=== PATIENT | female | born 1950 | race Caucasian/White ===

== ENCOUNTER 2024-03-21 02:37 | Outpatient (CLI) | payer MEDICARE, SELFPAY ==
[2024-03-21 10:16] LABS: Abs Immature Grans 0.04 10^3/uL (0.0-0.06); Absolute Basophil Count 0.07 10^3/uL (0.0-0.2); Absolute Eosinophil Count 0.22 10^3/uL (0.0-0.7); Absolute Lymphocyte Count 1.64 10^3/uL (1.2-3.4); Absolute Monocyte Count 0.45 10^3/uL (0.1-0.8); Absolute Neutrophil Count 4.21 10^3/uL (1.2-6.7); Basophils % 1.1 %; Eosinophils % 3.3 %; HCT 42.3 % (36.0-46.0); HGB 13.6 g/dL (11.2-15.7); Immature Grans % 0.6 %; Lymphocytes % 24.7 %; MCH 28.8 pg (27.0-33.0); MCHC 32.2 % (32.0-36.0); MCV 89 fL (80-95); MPV 10.6 fL (8.0-11.0); Monocytes % 6.8 %; Neutrophils % 63.5 %; Platelet Count 220 10^3/uL (130-400); RBC 4.73 10^6/uL (3.93-5.22); WBC 6.63 10^3/uL (4.4-10.8)
[2024-03-21 10:45] LABS: Hemoglobin A1C 6.1 % (<5.7)
[2024-03-21 11:35] LABS: ALT 34 U/L (14-59); AST 25 U/L (15-37); Albumin 3.8 g/dL (3.4-5.0); Alkaline Phosphatase 57 U/L (46-116); Anion Gap 5.9 mmol/L (3-11); BUN 20 mg/dL (7-18); Bilirubin, Total 0.26 mg/dL (0.2-1.0); CO2 32.1 mmol/L (21.0-32.0); Calcium 9.6 mg/dL (8.5-10.1); Calculated LDL 90 mg/dL (<100); Chloride 104 mmol/L (98-107); Cholesterol 178 mg/dL (<200); Estimated GFR 59.86 (mL/min/1.73m2); Glucose 86 mg/dL (74-106); HDL Cholesterol 60 mg/dL (40-60); Sodium 142 mmol/L (136-145); TSH (W/Ref FT4) 1.67 uIU/mL (0.36-3.74); Total Protein 7.1 g/dL (6.4-8.2); Triglyceride 144 mg/dL (<150)
[2024-03-21 20:11] LABS: HIV-1/2 Ag & Ab Screen Negative (Negative)
[2024-03-21 20:15] LABS: Hepatitis C Ab w Rflx HCV PCR Negative (Negative)
[2024-03-21 20:17] LABS: HBs Antibody, Quant 12.6 mIU/mL (See Note); Hep B Surface Ab Positive (See Note); Hepatitis B Core Antibody Negative (Negative); Hepatitis B Surface Antigen Negative (Negative)
== END 2024-03-21 02:38 | disposition home or self-care (01) ==
PROVIDERS: PCP Nurse Practitioner Family; Visit Provider Nurse Practitioner Family
DX: Z11.59 Encounter for screening for other viral diseases (principal); I10 Essential (primary) hypertension; E78.5 Hyperlipidemia, unspecified; Z11.4 Encounter for screening for human immunodeficiency virus [HIV]
CPT/HCPCS: 36415; 80053; 80061; 86704; 86706; 86803; 87340; 87389; 83036; 84443; 85025

== ENCOUNTER 2024-03-29 02:30 | Outpatient (CLI) | payer MEDICARE, SELFPAY ==
--- NOTE | 2024-03-29 07:15 | DI.MAMMO_ITS ---
Exam(s) MG MAMMO SCREENING 60 MIN DUR EXAM: MG MAMMO SCREENING 60 MIN DUR CLINICAL HISTORY: breast cancer screening,H/O LT BREAST CA,Z85.3,Z12.39. TECHNIQUE: Bilateral full field digital CC and MLO mammographic images were obtained with 3D tomosyn thesis and utilizing computer aided detection (CAD). COMPARISON: None. Prior outside mammograms have not yet been received (10 days). This 73-year-old patient underwent left breast lumpectomy for malignancy in December 1021. FINDINGS: The fibroglandular tissue pattern is moderately dense. No significant focal findings in the right breast. In the left breast there is architectural distortion inferomedially which is the site of prior lumpec adrián (December 2021). There are no malignant-appearing microcalcification groups at this site. IMPRESSION: 1. No radiographic evidence of malignancy in the right breast. 2. Architectural distortion scarring in the medial left breast at the prior lumpectomy site (December 2021, outside institution). 3. An addendum will follow if and when we receive her prior outside mammograms for comparison purpose s. BI-RADS Category 0 - Incomplete: Need additional imaging evaluation, specifically comparison to prio r outside mammograms Breast Density - Category C - Heterogeneously dense Breast density Category C or D implies that the patient has dense breast tissue. Dense breast tissue can make it harder to find cancer on a mammogram. Dense breast tissue is also associated with an incr eased risk of breast cancer. This information about the result of the mammogram report was provided to the patient to raise their awareness. Use this report when you speak with the patient about their risks for breast cancer, which includes their family history. At that time, you may recommend additional screening tests (Ultrasoun d or MRI) as these tests may add significant information. A negative radiographic report should not delay biopsy if a dominant or clinically suspicious mass is present. Up to ten percent of cancers are not identified on mammography. A negative report may reinforce clinical impression. Adenosis and dense breasts may obscure an underlying neoplasm. False positive reports average 6 to 10%. Patient will receive a letter notifying them of these results.
== END 2024-03-29 02:50 ==
LOC: DI 02:30
PROVIDERS: PCP Nurse Practitioner Family; Visit Provider Nurse Practitioner Family
DX: Z85.3 Personal history of malignant neoplasm of breast (principal); Z12.31 Encounter for screening mammogram for malignant neoplasm of breast; R92.333 Mammographic heterogeneous density, bilateral breasts
CPT/HCPCS: 77063; 77067

== ENCOUNTER 2024-05-22 01:47 | Outpatient (CLI) | payer MEDICARE, SELFPAY ==
--- NOTE | 2024-05-22 | DI.US_ITS ---
Exam(s) MG MAMMO SCREEN CALL BACK UNI US BREAST LT COMPLETE EXAM: MG MAMMO SCREEN CALL BACK UNI-LEFT COMPLETE LEFT BREAST ULTRASOUND CLINICAL HISTORY: R92.8 ABN mammo, Architectural distortion scarring in the medial LT breast. TECHNIQUE: Unilateral LEFT BREAST SPOT CC AND MLO mammographic images obtained with 3D tomosynthesis and utilizing computer aided detection (CAD). . Complete LEFT breast Ultrasound was also performed, including all 4 quadrants, the retroareolar regio n, and the ipsilateral axilla. THIS PATIENT UNDERWENT LEFT BREAST LUMPECTOMY FOLLOWING [facility] COMPARISON: Prior mammograms were reviewed. This additional imaging was performed due to findings described on the recent screening mammogram of 03/29/2024. We have now finally received the actual mammogram and ultrasound images from out the outside [facility] where the malignancy was discovered in November 2021. FINDINGS: DIAGNOSTIC MAMMOGRAM: Additional CC and MLO spot 3D mammographic views performed todayreveal architectural distortion at th e lumpectomy site towards the inferomedial aspect of the left breast. There is also a well-defined i nternally hypodense finding at this level which measures 1.8 x 1.1 cm. There are no malignant-appear ing microcalcifications in this region nor elsewhere in the left breast COMPLETE LEFT BREAST ULTRASOUND: Ultrasound performed today reveals a finding at the 7 o'clock lumpectomy site position which appears partially solid partially cystic, measuring 1.8 x 1.1 cm and most probably corresponding to the findi ng on the mammogram. Adjacent to it is another 2nd smaller finding measuring 5 x 4 mm which has appe arance of a hemorrhagic microcyst.. There are no other focal findings in all 4 quadrants of the left breast. Scanning of the ipsilateral axilla reveals no significant adenopathy. IMPRESSION: 1. Finding at the 7 o'clock position lumpectomy site of the left breast as described above, measurin g 18 x 11 mm which may be postoperative fat necrosis or small collection with good correlation betwee n the ultrasound and mammographic findings. 2. A 2nd smaller finding at this level has appearance of a small 5 x 4 mm hemorrhagic microcyst. Appropriate follow-up is repeat left breast mammogram and ultrasound in 6 months. BI-RADS Category 3 - 6 month - Probably Benign Finding: Recommend follow-up left breast ultrasound an d mammography in 6 months Breast Density - Category C - Heterogeneously dense Breast density Category C or D implies that the patient has dense breast tissue. Dense breast tissue can make it harder to find cancer on a mammogram. Dense breast tissue is also associated with an incr eased risk of breast cancer. This information about the result of the mammogram report was provided to the patient to raise their awareness. Use this report when you speak with the patient about their risks for breast cancer, which includes their family history. At that time, you may recommend additional screening tests (Ultrasoun d or MRI) as these tests may add significant information. A negative radiographic report should not delay biopsy if a dominant or clinically suspicious mass is present. Up to ten percent of cancers are not identified on mammography. A negative report may reinforce clinical impression. Adenosis and dense breasts may obscure an underlying neoplasm. False positive reports average 6 to 10%. Patient will receive a letter notifying them of these results.
== END 2024-05-22 02:07 ==
LOC: DI 01:47
PROVIDERS: PCP Nurse Practitioner Family; Visit Provider Nurse Practitioner Family
DX: Z12.31 Encounter for screening mammogram for malignant neoplasm of breast (principal); R92.8 Other abnormal and inconclusive findings on diagnostic imaging of breast
CPT/HCPCS: 76642; 77063; 77067

== ENCOUNTER 2024-11-23 03:54 | Outpatient (CLI) | payer MEDICARE, SELFPAY ==
--- NOTE | 2024-11-23 06:15 | DI.MAMMO_ITS ---
Exam(s) MG MAMMO DIAGNOSTIC UNI US BREAST LT LIMITED EXAM: MG MAMMO DIAGNOSTIC UNI CLINICAL HISTORY: 3-6 Month follow-up,r92.8,z09. COMPARISON: MG WC Specimen Xray from 01/08/2022 MG WC Mammo Digital Diagnostic Bilat from 01/27/2023 MG MG MAMMO SCREENING 60 MIN DUR from 03/29/2024 US US BREAST LT COMPLETE from 05/22/2024 MG MG MAMMO SCREEN CALL BACK UNI from 05/22/2024 US US BREAST LT LIMITED from 11/23/2024 TECHNIQUE: Craniocaudal and mediolateral oblique Full Field Digital Mammography views of the left breast with Computer Aided Diagnosis followed by Tomosynthesis and left breast ultrasound. FINDINGS: Mammography/Tomosynthesis: Masses: None seen. Architectural Distortion: Scarring is again noted in the lower inner quadrant. Microcalcifications: No suspicious pleomorphic-type are seen. Skin Thickening/Nipple Retraction: None. Left breast US: Echotexture: Normal appearance of the glandular tissue. Shadowing: No suspicious foci. Cyst: Stable size and appearance of partially cystic lesion in the 7-8 o'clock position 3 cm from the nipple. Stable adjacent 5 by 4 millimeter hemorrhagic/proteinaceous cyst. Ductal dilation: None. IMPRESSION: 1. No evidence of malignancy is noted. 2. Stable mammogram and ultrasound findings.. BI-RADS Category 3 - Annual - Resume Annual Screening Breast Density - Category C - The breast are heterogeneously dense, which may obscure small masses. Breast density Category C or D implies that the patient has dense breast tissue. Dense breast tissue can make it harder to find cancer on a mammogram. Dense breast tissue is also associated with an increased risk of breast cancer. This information about the result of the mammogram report was provided to the patient to raise their awareness. Use this report when you speak with the patient about their risks for breast cancer, which includes their family history. At that time, you may recommend additional screening tests (Ultrasound or MRI) as these tests may add significant information. A negative radiographic report should not delay biopsy if a dominant or clinically suspicious mass is present. Up to ten percent of cancers are not identified on mammography. A negative report may reinforce clinical impression. Adenosis and dense breasts may obscure an underlying neoplasm. False positive reports average 6 to 10%. Patient will receive a letter notifying them of these results.
== END 2024-11-23 04:14 ==
LOC: DI 03:55
PROVIDERS: PCP Nurse Practitioner Family; Visit Provider Nurse Practitioner Family
DX: Z09 Encounter for follow-up examination after completed treatment for conditions other than malignant neoplasm (principal)
CPT/HCPCS: 76642; 77061; 77065; G0279

== ENCOUNTER → 2025-01-18 10:32 | Outpatient (BNVA) | payer MEDICARE, SELFPAY | PROVIDERS: PCP Nurse Practitioner Family; Referring Provider Nurse Practitioner Family; Visit Provider Physical Therapy Assistant | DX: Z12.11 Encounter for screening for malignant neoplasm of colon (principal) ==

== ENCOUNTER → 2025-02-15 00:39 | Outpatient (CLI) | payer MEDICARE, SELFPAY ==
--- NOTE | 2025-02-15 10:45 | DI.CT_ITS ---
Exam(s) CT BRAIN NECK CTA EXAM: CT BRAIN NECK CTA CLINICAL HISTORY: Sudden severe headache,? aneurysm,r51.9. TECHNIQUE: Imaging Protocol: Axial CT angiography was performed with multi- slice acquisition and multi-planar and MIP reconstructions. CONTRAST MATERIAL: Intravenous: Omnipaque 350 Contrast volume:70 ml COMPARISON: No exams were available for comparison FINDINGS: CT Head W/O and W contrast: Ventricles and Extra axial spaces: Normal in size and morphology for the patient's age. Heavy calcification along the falx. Hemorrhage: None. Cerebral parenchyma: No evidence of acute infarct or mass. No significant atrophy. No visible white matter changes. Midline shift: None. Brainstem/Cerebellum: No acute findings.. Calvarium: Hyperostosis frontalis interna. Visualized Paranasal sinuses/Mastoids: Clear. Soft Tissues: Unremarkable. Enhancement: Normal. Venous sinuses are patent. CTA Brain W: Internal Carotid Arteries: Right: No aneurysm, occlusion or significant stenosis. Minimal calcifications at the level of the clinoid. Left: No aneurysm, occlusion or significant stenosis. Middle Cerebral Arteries: Right: No aneurysm, occlusion or significant stenosis. Left: No aneurysm, occlusion or significant stenosis. Anterior Cerebral Arteries: Right: No aneurysm, occlusion or significant stenosis. Left: No aneurysm, occlusion or significant stenosis. Posterior cerebral Arteries: Right: No aneurysm, occlusion or significant stenosis. Left: No aneurysm, occlusion or significant stenosis. Vertebral Arteries: Right: No aneurysm, occlusion or significant stenosis. Left: No aneurysm, occlusion or significant stenosis. Basilar Artery: No aneurysm, occlusion or significant stenosis. CTA Neck W: No significant atherosclerotic changes. Visualized aorta: Unremarkable. Visualized pulmonary arteries: Unremarkable. Subclavian arteries: Unremarkable. Common Carotid: Right: No dissection, occlusion or significant stenosis. Left: No dissection, occlusion or significant stenosis. External Carotid: Right: No dissection, occlusion or significant stenosis. Left: No dissection, occlusion or significant stenosis. Internal Carotid: Right: No dissection, occlusion or significant stenosis. Left: No dissection, occlusion or significant stenosis. Vertebral Artery: Right: No dissection, occlusion or significant stenosis. Left: No dissection, occlusion or significant stenosis. Lung Apices: No acute findings. Bones: No acute abnormality. Severe degenerative changes from C4-5 through C 6 7. Soft Tissues: Normal. IMPRESSION: 1. CTA brain: Minimal calcification of the internal carotid arteries at the level the clinoid processes. Otherwise normal CTA examination of the [place]. No evidence of aneurysm. 2. Head CT: Normal. 3. CTA neck: No evidence of occlusion, significant stenosis or dissection. No visible atherosclerotic changes. RADIATION DOSE DELIVERED: Total DLP DATA REPOSITORY: All CT scans at this facility are submitted to the National Radiology Data Registry (NRDR) Dose Index Registry (DIR) with the [employer] (A[employer]). RADIATION OPTIMIZATION: All CT scans at this facility use at least one of these dose optimization techniques: automated exposure control; mA and/or kV adjustment per patient size (includes targeted exams where dose is matched to clinical indication); or iterative reconstruction.
[2025-02-15] MEDS: Normal Saline - Diluent 50 ML VIAL IJ (16:26)
[2025-02-15] MEDS: Omnipaque 350 MG/ML 100 ML BTL 70 ML IJ (16:27)
[2025-02-15] MEDS: Normal Saline Flush 10 ML SYR IVP (16:27)
== END ==
LOC: DI 00:39
PROVIDERS: PCP Nurse Practitioner Family; Visit Provider Nurse Practitioner Family
DX: R51.9 Headache, unspecified (principal)
CPT/HCPCS: 70496; 70498; 82565; J3490